=== PATIENT | female | born 1995 | race Caucasian/White ===

== ENCOUNTER 2021-02-08 18:47 | Observation (INO) | payer MEDICAID ==
[~2021-02-08] VITALS: Ht 154.9 cm; Wt 110.2 kg
[2021-02-08] MEDS ORDERED: PNV1TABL76 PO (19:43)
== END 2021-02-08 20:00 | disposition home or self-care (01) ==
LOC: 8 EST LDRP 18:47
PROVIDERS: ADMIT Obstetrics & Gynecology; ATTEND Obstetrics & Gynecology
DX: Z34.92 Encounter for supervision of normal pregnancy, unspecified, second trimester (principal); Z3A.23 23 weeks gestation of pregnancy
CPT/HCPCS: 59025; G0378

== ENCOUNTER 2021-04-23 06:04 | Inpatient (IN) | payer MEDICAID ==
[~2021-04-23] VITALS: Ht 1 cm; Wt 110.2 kg
[~2021-04-23 06:04] MED LIST: PNV1TABL76 PO
[2021-04-23] MEDS ORDERED: LACTATED RINGERS 1,000 ML IV SCH (07:30)
[2021-04-23] MEDS ORDERED: CARBOPROST TROMETHAMINE 250 MCG/ML AMPUL IM PRN (07:30)
[2021-04-23] MEDS ORDERED: METHYLERGONOVINE MALEATE 0.2 MG/ML IM PRN (07:30)
[2021-04-23 09:07] LABS: BASOPHILS % 0.2 % (0.0-2.0); EOSINOPHILS % 1.5 % (0.0-5.0); HEMATOCRIT. 39.6 % (36.0-48.0); HEMOGLOBIN. 13.5 g/dL (12.0-16.0); LYMPHOCYTES % 17.9 % (20.0-50.0); MEAN CORPUSCULAR HEMOGLOBIN 30.2 pg (28.0-32.0); MEAN PLATELET VOLUME 11.8 fl (7.4-10.4); MONOCYTES % 6.5 % (2.0-8.0); NEUTROPHILS % 73.9 % (40.0-76.0); PLATELET 142 x1000/uL (130-400); RED BLOOD CELL COUNT 4.45 mill/uL (4.2-5.4); RED CELL DISTRIBUTION WIDTH 14.1 % (11.6-14.6)
[2021-04-23 09:09] LABS: CLARITY URINE CLEAR (CLEAR); COLOR URINE ORANGE (YELLOW); KETONES URINE NEGATIVE (NEGATIVE); LEUKOCYTE ESTERASE URINE TRACE (NEGATIVE); NITRITE URINE NEGATIVE (NEGATIVE); OCCULT BLOOD URINE 3+ (NEGATIVE); PROTEIN URINE TRACE (NEGATIVE); SPECIFIC GRAVITY URINE 1.008 (1.005-1.030); UROBILINOGEN URINE 0.2 E.U./dL (0.2-1.0)
[2021-04-23 09:57] LABS: *AMPHETAMINES SCREEN URINE NEGATIVE (NEGATIVE); *BARBITURATES SCREEN URINE NEGATIVE (NEGATIVE)
[2021-04-23 09:58] LABS: *BENZODIAZEPINES SCREEN URINE NEGATIVE (NEGATIVE); *COCAINE SCREEN URINE NEGATIVE (NEGATIVE); CANNABINOID URINE SCREEN NEGATIVE (NEGATIVE); METHADONE URINE SCREEN NEGATIVE (NEGATIVE); OPIATES URINE SCREEN NEGATIVE (NEGATIVE); PHENCYCLIDINE URINE SCREEN NEGATIVE (NEGATIVE)
[2021-04-23 11:32] LABS: INR 0.9; PARTIAL THROMBOPLASTIN TIME 25.6 sec (23.4-31.0); PROTHROMBIN TIME 9.8 sec (9.6-11.0)
[2021-04-23] MEDS ORDERED: CEFAZOLIN SODIUM 1000MG/VIAL ONE (12:09)
[2021-04-23] MEDS ORDERED: MORPHINE SULFATE/PF 1MG/ML 10ML AMP ONE (12:09)
[2021-04-23] MEDS ORDERED: OXYTOCIN 10 UNITS/ML 1ML ONE (12:09)
[2021-04-23] MEDS ORDERED: ONDANSETRON HCL 4MG/2ML INJ ONE (12:10)
[2021-04-23] MEDS ORDERED: EPHEDRINE SULFATE 50MG/ML VIAL ONE (12:10)
[2021-04-23] MEDS ORDERED: SUCCINYLCHOLINE CHLORIDE 200MG/10ML IV ONE (12:10)
[2021-04-23] MEDS ORDERED: PHENYLEPHRINE HCL 10 MG/ML 1ML (IV VIAL) IV ONE (12:25)
[2021-04-23 12:41] LABS: HEPATITIS B SURFACE ANTIGEN NEGATIVE
[2021-04-23] MEDS ORDERED: MORPHINE SULFATE 2 MG/ML CPJ (NOT FOR IM USE) IV PRN (13:00)
[2021-04-23] MEDS ORDERED: DIPHENHYDRAMINE 50MG/ML VIAL IV PRN (13:00)
[2021-04-23] MEDS ORDERED: NALOXONE HCL 0.4 MG/ML 1ML VIAL IV PRN (13:00)
[2021-04-23] MEDS ORDERED: ONDANSETRON HCL 4MG/2ML INJ IV PRN ×3 (13:00→16:15)
[2021-04-23] MEDS ORDERED: METOCLOPRAMIDE HCL 10MG/2ML VIAL IV PRN (13:00)
[2021-04-23] MEDS ORDERED: LANOLIN OINT 7GM TUBE TOP PRN ×2 (15:00→16:15)
[2021-04-23] MEDS ORDERED: RHO(D) IMMUNE GLOBULIN 300 MCG/SYR IM PRN ×2 (15:00→16:15)
[2021-04-23] MEDS ORDERED: IBUPROFEN 400MG TABLET PO PRN ×2 (15:00→16:15)
[2021-04-23] MEDS ORDERED: DEXT 5%/LR + PITOCIN 20UNITS/L 1,000 ML IV SCH ×2 (15:00→16:15)
[2021-04-23 15:30] VITALS: BP 89/49
[2021-04-23] MEDS: KETOROLAC 30MG/ML VIAL IV SCH ×2 (15:30→20:08)
[2021-04-23 16:05] VITALS: BP 90/49
[2021-04-23] MEDS ORDERED: DIPHENHYDRAMINE 25MG CAPSULE PO PRN (16:15)
[2021-04-23] MEDS ORDERED: ACETAMINOPHEN WITH CODEINE 300/30MG TABLET PO PRN (16:15)
[2021-04-23] MEDS ORDERED: IBUPROFEN 800MG TABLET PO PRN (16:15)
[2021-04-23] MEDS ORDERED: BISACODYL 10MG SUPP PR PRN (16:15)
[2021-04-23] MEDS ORDERED: HEMORRHOIDAL SUPP PR PRN (16:15)
[2021-04-23] MEDS: MAGNESIUM/ALUMINUM HYDROXIDE/SIMETHICONE 30ML UDC PO SCH (17:00)
[2021-04-23] MEDS: SIMETHICONE 80MG TABLET CHEW PO SCH (17:00)
[2021-04-23 20:00] VITALS: BP 100/53
[2021-04-23] MEDS ORDERED: DOCUSATE SODIUM 100MG CAPSULE PO SCH ×2 (21:00)
[2021-04-23 23:57] VITALS: BP 96/58
[2021-04-24] MEDS: KETOROLAC 30MG/ML VIAL IV SCH (02:18)
[2021-04-24 03:00] VITALS: BP 94/50
[2021-04-24] MEDS ORDERED: KETOROLAC 30MG/ML VIAL IV SCH (03:00)
[2021-04-24] MEDS ORDERED: FERROUS SULFATE 325MG TABLET PO SCH ×2 (07:30→09:00)
[2021-04-24 08:05] LABS: BASOPHILS % 0.1 % (0.0-2.0); EOSINOPHILS % 0.3 % (0.0-5.0); HEMOGLOBIN. 9.4 g/dL (12.0-16.0); LYMPHOCYTES % 14.1 % (20.0-50.0); MEAN CORPUSCULAR HEMOGLOBIN 30.8 pg (28.0-32.0); MEAN CORPUSCULAR VOLUME 91.8 fL (81.0-99.0); MEAN PLATELET VOLUME 11.7 fl (7.4-10.4); MONOCYTES % 6.7 % (2.0-8.0); NEUTROPHILS % 78.8 % (40.0-76.0); PLATELET 137 x1000/uL (130-400); RED BLOOD CELL COUNT 3.05 mill/uL (4.2-5.4); RED CELL DISTRIBUTION WIDTH 14.7 % (11.6-14.6)
[2021-04-24] MEDS ORDERED: PRENATAL VIT/FE FUMARATE/FA TABLET PO SCH ×2 (09:00)
[2021-04-24] MEDS: IBUPROFEN 800MG TABLET PO PRN ×2 (09:08→21:14)
[2021-04-24] MEDS: SIMETHICONE 80MG TABLET CHEW PO SCH ×2 (09:08→21:13)
[2021-04-24 19:30] VITALS: BP 101/53
[2021-04-24] MEDS: MAGNESIUM/ALUMINUM HYDROXIDE/SIMETHICONE 30ML UDC PO SCH (21:13)
[2021-04-25 04:00] VITALS: BP 121/64
[2021-04-25 10:00] VITALS: BP 112/64
[2021-04-25] MEDS: MAGNESIUM/ALUMINUM HYDROXIDE/SIMETHICONE 30ML UDC PO SCH (13:46)
[2021-04-25] MEDS: SIMETHICONE 80MG TABLET CHEW PO SCH (13:46)
== END 2021-04-25 14:00 | disposition home or self-care (01) | DRG 540 ==
LOC: 8 EST LDRP 06:04 → OBSVTOIN 06:04 → 8EST 15:30
PROVIDERS: ADMIT Obstetrics & Gynecology; ATTEND Obstetrics & Gynecology
PROC: 10D00Z1 Extraction of Products of Conception, Low, Open Approach (ICD-10-PCS; principal; 2021-04-24)
DX: O34.211 Maternal care for low transverse scar from previous cesarean delivery (principal); Z20.822 Contact with and (suspected) exposure to COVID-19; Z37.0 Single live birth; Z3A.38 38 weeks gestation of pregnancy
CPT/HCPCS: 36415; 80305; 81003; 85025; 86592; 86703; 86762; 86850; 86900; 87340; 87426; 88307; 99281; G0378; J0330; J0690; J1885; J2274; J2370; J2405; J2590; J3490; J7120; A4315

== ENCOUNTER 2021-04-27 13:55 | Inpatient (IN) | payer MEDICAID ==
[~2021-04-27] VITALS: Ht 154.9 cm; Wt 111.1 kg
[2021-04-27] MEDS ORDERED: MORPHINE SULFATE 4 MG/ML CPJ (NOT FOR IM USE) IV STA (14:22)
[2021-04-27] MEDS ORDERED: SODIUM CHLORIDE 0.9% 1000ML BAG (SEPSIS BOLUS) IV ONE (14:30)
[2021-04-27 15:11] LABS: BASOPHILS % 0.2 % (0.0-2.0); EOSINOPHILS % 1.2 % (0.0-5.0); HEMATOCRIT. 23.2 % (36.0-48.0); HEMOGLOBIN. 7.8 g/dL (12.0-16.0); LYMPHOCYTES % 12.2 % (20.0-50.0); MEAN CORPUSCULAR HEMOGLOBIN 31.1 pg (28.0-32.0); MEAN CORPUSCULAR VOLUME 92.4 fL (81.0-99.0); MEAN PLATELET VOLUME 9.8 fl (7.4-10.4); MONOCYTES % 7.8 % (2.0-8.0); NEUTROPHILS % 78.6 % (40.0-76.0); PLATELET 223 x1000/uL (130-400); RED BLOOD CELL COUNT 2.51 mill/uL (4.2-5.4); RED CELL DISTRIBUTION WIDTH 14.7 % (11.6-14.6)
[2021-04-27 15:14] LABS: CHLORIDE 108 mEq/L (98-107)
[2021-04-27 15:17] LABS: INR 0.9; PROTHROMBIN TIME 10.2 sec (9.6-11.0)
[2021-04-27] MEDS ORDERED: PIPERACILLIN/TAZOBACTAM 3.375GM/50ML PREMIX IV NR (17:15)
[2021-04-27] MEDS ORDERED: MORPHINE SULFATE 4 MG/ML CPJ (NOT FOR IM USE) IV NR (17:15)
[2021-04-27] MEDS ORDERED: CLINDAMYCIN 600MG PREMIX 50 ML IV NR (17:30)
[2021-04-27] MEDS ORDERED: HYDROMORPHONE HCL/PF 2MG/ML CPJ IV ONE ×2 (18:00)
[2021-04-28] MEDS ORDERED: MORPHINE SULFATE 2 MG/ML CPJ (NOT FOR IM USE) IV PRN (02:15)
[2021-04-28 02:41] VITALS: BP 135/76
[2021-04-28] MEDS ORDERED: NALOXONE HCL 0.4MG/ML VIAL IV PRN (03:45)
[2021-04-28] MEDS: HYDROCODONE/ACETAMINOPHEN 5/325MG TABLET PO PRN ×2 (03:57→10:11)
[2021-04-28 04:00] VITALS: BP 117/64
[2021-04-28] MEDS ORDERED: PNEUMOCOCCAL 23-VAL P-SAC VAC 0.5 ML IM ONE (05:45)
[2021-04-28 08:00] VITALS: BP 114/70
[2021-04-28] MEDS ORDERED: IBUP-2029 MT (08:01)
[2021-04-28] MEDS ORDERED: GENTAMICIN 80MG PREMIX 100 ML IV SCH (11:30)
[2021-04-28 12:00] VITALS: BP 123/76
[2021-04-28] MEDS ORDERED: GENTAMICIN SULFATE 150 MG in SODIUM CHLORIDE 0.9% 100 ML IV NR (13:00)
[2021-04-28] MEDS: LACTATED RINGERS 1,000 ML IV SCH ×2 (13:36→17:40)
[2021-04-28] MEDS: GENTAMICIN 80MG PREMIX 100 ML IV SCH ×2 (14:03→21:22)
[2021-04-28] MEDS: CLINDAMYCIN 900 MG in DEXTROSE 5% WATER 50 ML IV SCH ×2 (15:32→20:28)
[2021-04-28 16:00] VITALS: BP 117/74
[2021-04-28 20:00] VITALS: BP 106/64
[2021-04-28] MEDS: ACETAMINOPHEN 325MG TABLET PO PRN (20:27)
[2021-04-29] VITALS: BP 115/62
[2021-04-29 04:00] VITALS: BP 124/76
[2021-04-29] MEDS: CLINDAMYCIN 900 MG in DEXTROSE 5% WATER 50 ML IV SCH ×3 (04:28→21:32)
[2021-04-29] MEDS: LACTATED RINGERS 1,000 ML IV SCH ×4 (04:40→20:50)
[2021-04-29] MEDS: ACETAMINOPHEN 325MG TABLET PO PRN (05:26)
[2021-04-29] MEDS: GENTAMICIN 80MG PREMIX 100 ML IV SCH ×2 (05:26→12:08)
[2021-04-29 05:57] LABS: BASOPHILS % 0.2 % (0.0-2.0); EOSINOPHILS % 0.7 % (0.0-5.0); HEMATOCRIT. 26.9 % (36.0-48.0); HEMOGLOBIN. 8.9 g/dL (12.0-16.0); LYMPHOCYTES % 13.7 % (20.0-50.0); MEAN CORPUSCULAR HEMOGLOBIN 30.2 pg (28.0-32.0); MEAN CORPUSCULAR VOLUME 91.2 fL (81.0-99.0); MEAN PLATELET VOLUME 9.1 fl (7.4-10.4); MONOCYTES % 8.7 % (2.0-8.0); NEUTROPHILS % 76.7 % (40.0-76.0); PLATELET 289 x1000/uL (130-400); RED BLOOD CELL COUNT 2.95 mill/uL (4.2-5.4); RED CELL DISTRIBUTION WIDTH 14.7 % (11.6-14.6)
[2021-04-29 06:14] LABS: CHLORIDE 109 mEq/L (98-107)
[2021-04-29 08:00] VITALS: BP 130/82
[2021-04-29 12:00] VITALS: BP 129/78
[2021-04-29 16:00] VITALS: BP 117/66
[2021-04-29] MEDS ORDERED: MEPERIDINE HCL/PF 25MG/ML CPJ IV PRN ×2 (17:30)
[2021-04-29] MEDS ORDERED: ONDANSETRON HCL 4MG/2ML INJ IV PRN (17:30)
[2021-04-29] MEDS ORDERED: MORPHINE SULFATE 2 MG/ML CPJ (NOT FOR IM USE) IV PRN (17:30)
[2021-04-29] MEDS ORDERED: SODIUM CHLORIDE 0.9% 1,000 ML IV ONE (17:30)
[2021-04-29] MEDS ORDERED: HYDROMORPHONE HCL/PF 2MG/ML CPJ IV PRN (17:30)
[2021-04-29] MEDS ORDERED: ALBUMIN HUMAN 12.5G/250ML (5%) IV ONE (17:31)
[2021-04-29] MEDS ORDERED: PROPOFOL 200MG/20ML VIAL IV ONE ×2 (17:33→18:46)
[2021-04-29] MEDS ORDERED: NEOSTIGMINE METHYLSULFATE 1MG/ML 10 ML VIAL ONE (17:33)
[2021-04-29] MEDS ORDERED: FENTANYL CITRATE/PF 50MCG/ML 2ML VIAL ONE ×3 (17:33→18:30)
[2021-04-29] MEDS ORDERED: ROCURONIUM BROMIDE 10MG/ML VIAL 5ML IV ONE (17:33)
[2021-04-29] MEDS ORDERED: PHENYLEPHRINE HCL 10 MG/ML 1ML (IV VIAL) IV ONE (17:34)
[2021-04-29] MEDS ORDERED: SUCCINYLCHOLINE CHLORIDE 200MG/10ML IV ONE (17:34)
[2021-04-29] MEDS ORDERED: SODIUM CHLORIDE 0.9% 10ML VIAL ONE (17:34)
[2021-04-29] MEDS ORDERED: ONDANSETRON HCL 4MG/2ML INJ ONE (17:34)
[2021-04-29] MEDS ORDERED: MIDAZOLAM HCL 2 MG/2 ML VIAL ONE (17:34)
[2021-04-29] MEDS ORDERED: METOCLOPRAMIDE HCL 10MG/2ML VIAL ONE (17:34)
[2021-04-29] MEDS ORDERED: CEFAZOLIN SODIUM 1000MG/VIAL ONE (17:34)
[2021-04-29] MEDS ORDERED: GLYCOPYRROLATE 0.2 MG/ML 2ML VIAL ONE (17:34)
[2021-04-29] MEDS: GENTAMICIN 100MG PREMIX 50 ML IV SCH (18:00)
[2021-04-29 18:44] LABS: MEAN CORPUSCULAR HEMOGLOBIN 32.1 pg (28.0-32.0); PLATELET 292 x1000/uL (130-400); RED CELL DISTRIBUTION WIDTH 14.8 % (11.6-14.6)
[2021-04-29] MEDS ORDERED: HYDROMORPHONE HCL/PF 2MG/ML (OR) ONE (18:48)
[2021-04-29 18:53] LABS: HEMATOCRIT 20.9 % (36.0-48.0)
[2021-04-29 18:54] LABS: HEMOGLOBIN 7.4 g/dL (12.0-16.0)
[2021-04-29 20:00] VITALS: BP 135/78
[2021-04-29 22:23] LABS: CLARITY URINE CLEAR (CLEAR); COLOR URINE DARK YELLOW (YELLOW); KETONES URINE 2+ (NEGATIVE); LEUKOCYTE ESTERASE URINE TRACE (NEGATIVE); NITRITE URINE NEGATIVE (NEGATIVE); OCCULT BLOOD URINE 2+ (NEGATIVE); PH URINE 7.5 (4.5-8.0); PROTEIN URINE 1+ (NEGATIVE); SPECIFIC GRAVITY URINE 1.017 (1.005-1.030)
[2021-04-30] VITALS: BP 132/83
[2021-04-30] MEDS: ACETAMINOPHEN 325MG TABLET PO PRN ×3 (00:55→23:38)
[2021-04-30] MEDS: GENTAMICIN 100MG PREMIX 50 ML IV SCH ×3 (00:55→17:38)
[2021-04-30] MEDS: HYDROCODONE/ACETAMINOPHEN 5/325MG TABLET PO PRN ×3 (02:48→20:18)
[2021-04-30] MEDS: LACTATED RINGERS 1,000 ML IV SCH ×3 (02:49→06:10)
[2021-04-30 04:00] VITALS: BP 119/72
[2021-04-30] MEDS: CLINDAMYCIN 900 MG in DEXTROSE 5% WATER 50 ML IV SCH ×3 (04:31→20:18)
[2021-04-30 06:33] LABS: CHLORIDE 111 mEq/L (98-107)
[2021-04-30 07:17] LABS: BASOPHILS % 0.2 % (0.0-2.0); EOSINOPHILS % 0.3 % (0.0-5.0); HEMATOCRIT. 24.6 % (36.0-48.0); HEMOGLOBIN. 8.2 g/dL (12.0-16.0); LYMPHOCYTES % 17.7 % (20.0-50.0); MEAN CORPUSCULAR HEMOGLOBIN 30.8 pg (28.0-32.0); MEAN CORPUSCULAR VOLUME 92.4 fL (81.0-99.0); MEAN PLATELET VOLUME 9.2 fl (7.4-10.4); MONOCYTES % 6.3 % (2.0-8.0); NEUTROPHILS % 75.5 % (40.0-76.0); PLATELET 323 x1000/uL (130-400); RED BLOOD CELL COUNT 2.67 mill/uL (4.2-5.4); RED CELL DISTRIBUTION WIDTH 15.1 % (11.6-14.6)
[2021-04-30] MEDS ORDERED: LACTATED RINGERS 1,000 ML IV SCH (07:45)
[2021-04-30] MEDS ORDERED: GENTAMICIN 100MG PREMIX 100 ML IV SCH (07:45)
[2021-04-30] MEDS ORDERED: CLINDAMYCIN 900 MG in DEXTROSE 5% WATER 50 ML IV SCH (07:45)
[2021-04-30 08:00] VITALS: BP 120/80
[2021-04-30] MEDS ORDERED: POTASSIUM CHLORIDE INJ 40 MEQ in DEXT 5% WATER 500 ML IV ONE (08:30)
[2021-04-30] MEDS ORDERED: CALCIUM GLUCONATE 1GM PREMIX 50 ML IV NR (09:00)
[2021-04-30 12:00] VITALS: BP 118/64
[2021-04-30 16:00] VITALS: BP 118/64
[2021-04-30 16:25] LABS: HEMATOCRIT 26.2 % (36.0-48.0); HEMOGLOBIN 8.9 g/dL (12.0-16.0); PLATELET 362 x1000/uL (130-400); RED BLOOD CELL COUNT 2.78 mill/uL (4.2-5.4); RED CELL DISTRIBUTION WIDTH 15.4 % (11.6-14.6)
[2021-04-30 20:00] VITALS: BP 117/64
[2021-04-30] MEDS ORDERED: IBUPROFEN 800MG TABLET PO PRN (23:30)
[2021-04-30] MEDS: DOCUSATE SODIUM 100MG CAPSULE PO SCH (23:35)
[2021-05-01] VITALS: BP 132/67
[2021-05-01] MEDS ORDERED: LACTATED RINGERS 1,000 ML IV SCH ×2 (00:30)
[2021-05-01] MEDS: GENTAMICIN 100MG PREMIX 50 ML IV SCH ×3 (00:50→22:03)
[2021-05-01] MEDS: LACTATED RINGERS 1,000 ML IV SCH ×4 (00:50→19:30)
[2021-05-01] MEDS: HYDROCODONE/ACETAMINOPHEN 5/325MG TABLET PO PRN (02:56)
[2021-05-01 04:00] VITALS: BP 113/64
[2021-05-01] MEDS: CLINDAMYCIN IN 0.9 % SOD CHLOR 50 ML IV SCH ×3 (05:50→21:55)
[2021-05-01 07:32] LABS: CHLORIDE 111 mEq/L (98-107)
[2021-05-01 07:37] LABS: GENTAMICIN RANDOM 2.6 ug/mL
[2021-05-01 07:42] LABS: HEMATOCRIT 26.7 % (36.0-48.0); HEMOGLOBIN 8.8 g/dL (12.0-16.0); MEAN CORPUSCULAR HEMOGLOBIN 30.4 pg (28.0-32.0); MEAN CORPUSCULAR VOLUME 91.9 fL (81.0-99.0); PLATELET 421 x1000/uL (130-400); RED BLOOD CELL COUNT 2.91 mill/uL (4.2-5.4); RED CELL DISTRIBUTION WIDTH 15.1 % (11.6-14.6)
[2021-05-01] MEDS: DOCUSATE SODIUM 100MG CAPSULE PO SCH (10:45)
[2021-05-01 16:00] VITALS: BP 114/76
[2021-05-01 20:00] VITALS: BP 106/55
[2021-05-01] MEDS: ACETAMINOPHEN 325MG TABLET PO PRN (21:56)
[2021-05-01] MEDS ORDERED: GENTAMICIN 100MG PREMIX 50 ML IV SCH (23:00)
[2021-05-01 23:45] VITALS: BP 117/52
[2021-05-02 04:00] VITALS: BP 125/73
[2021-05-02] MEDS: LACTATED RINGERS 1,000 ML IV SCH ×4 (05:14→23:30)
[2021-05-02] MEDS: CLINDAMYCIN IN 0.9 % SOD CHLOR 50 ML IV SCH ×3 (05:17→22:13)
[2021-05-02] MEDS: ACETAMINOPHEN 325MG TABLET PO PRN ×2 (05:37→22:09)
[2021-05-02 08:00] VITALS: BP 131/69
[2021-05-02] MEDS: DOCUSATE SODIUM 100MG CAPSULE PO SCH (09:44)
[2021-05-02 12:00] VITALS: BP 126/77
[2021-05-02 12:21] LABS: HEMATOCRIT 24.6 % (36.0-48.0); HEMOGLOBIN 8.3 g/dL (12.0-16.0); MEAN CORPUSCULAR HEMOGLOBIN 30.8 pg (28.0-32.0); MEAN CORPUSCULAR VOLUME 90.8 fL (81.0-99.0); PLATELET 447 x1000/uL (130-400); RED BLOOD CELL COUNT 2.71 mill/uL (4.2-5.4); RED CELL DISTRIBUTION WIDTH 14.9 % (11.6-14.6)
[2021-05-02 12:24] LABS: CHLORIDE 109 mEq/L (98-107)
[2021-05-02] MEDS: AMPICILLIN 2,000 MG in SODIUM CHLORIDE 0.9% 100 ML IV SCH ×3 (13:06→23:43)
[2021-05-02] MEDS: GENTAMICIN 100MG PREMIX 50 ML IV SCH ×2 (13:13→22:49)
[2021-05-02 16:00] VITALS: BP 106/64
[2021-05-02 20:00] VITALS: BP 122/70
[2021-05-02] MEDS ORDERED: LACTATED RINGERS 1,000 ML IV ONE (23:00)
[2021-05-03] VITALS: BP 108/54
[2021-05-03 04:00] VITALS: BP 138/88
[2021-05-03] MEDS: CLINDAMYCIN IN 0.9 % SOD CHLOR 50 ML IV SCH ×3 (05:05→21:25)
[2021-05-03] MEDS: AMPICILLIN 2,000 MG in SODIUM CHLORIDE 0.9% 100 ML IV SCH ×4 (05:43→23:07)
[2021-05-03] MEDS: LACTATED RINGERS 1,000 ML IV SCH ×3 (06:39→21:04)
[2021-05-03 07:26] LABS: HEMOGLOBIN 7.7 g/dL (12.0-16.0); MEAN CORPUSCULAR HEMOGLOBIN 30.5 pg (28.0-32.0); MEAN CORPUSCULAR VOLUME 91.1 fL (81.0-99.0); PLATELET 379 x1000/uL (130-400); RED BLOOD CELL COUNT 2.53 mill/uL (4.2-5.4); RED CELL DISTRIBUTION WIDTH 15.3 % (11.6-14.6)
[2021-05-03 07:53] LABS: CHLORIDE 113 mEq/L (98-107)
[2021-05-03 08:00] VITALS: BP 121/54
[2021-05-03 08:04] LABS: GENTAMICIN RANDOM 0.5 ug/mL
[2021-05-03] MEDS: DOCUSATE SODIUM 100MG CAPSULE PO SCH (09:22)
[2021-05-03] MEDS: GENTAMICIN 100MG PREMIX 50 ML IV SCH ×2 (10:29→22:12)
[2021-05-03 12:00] VITALS: BP 117/66
[2021-05-03 16:00] VITALS: BP 105/54
[2021-05-03 20:00] VITALS: BP 112/65
[2021-05-04] VITALS: BP 116/53
[2021-05-04 04:00] VITALS: BP 125/70
[2021-05-04] MEDS: CLINDAMYCIN IN 0.9 % SOD CHLOR 50 ML IV SCH ×2 (06:10→13:15)
[2021-05-04] MEDS: AMPICILLIN 2,000 MG in SODIUM CHLORIDE 0.9% 100 ML IV SCH ×2 (06:10→11:28)
[2021-05-04] MEDS: LACTATED RINGERS 1,000 ML IV SCH ×2 (06:11→08:59)
[2021-05-04 08:00] VITALS: BP 123/73
[2021-05-04] MEDS: DOCUSATE SODIUM 100MG CAPSULE PO SCH (08:59)
[2021-05-04] MEDS ORDERED: POTASSIUM CHLORIDE 20MEQ TABLET SR PO SCH (10:30)
[2021-05-04] MEDS: GENTAMICIN 100MG PREMIX 50 ML IV SCH (10:48)
[2021-05-04 12:00] VITALS: BP 132/73
[2021-05-04 13:04] VITALS: BP 132/73
== END 2021-05-04 14:48 | disposition home or self-care (01) | DRG 548 ==
LOC: ER 13:55 → MICUSO 17:04 → EDBEDREQSVC 17:51 → EDBEDREQ 17:51 → 8WST 23:40
PROVIDERS: ADMIT Obstetrics & Gynecology; ATTEND Obstetrics & Gynecology
PROC: 0UC90ZZ Extirpation of Matter from Uterus, Open Approach (ICD-10-PCS; principal; 2021-04-29)
DX: O90.2 Hematoma of obstetric wound (principal); D62 Acute posthemorrhagic anemia; E83.51 Hypocalcemia; O86.4 Pyrexia of unknown origin following delivery; O86.20 Urinary tract infection following delivery, unspecified; S30.1XXA Contusion of abdominal wall, initial encounter; Z20.822 Contact with and (suspected) exposure to COVID-19; O90.81 Anemia of the puerperium; O90.89 Other complications of the puerperium, not elsewhere classified; E87.6 Hypokalemia; Z98.891 History of uterine scar from previous surgery
CPT/HCPCS: 36415; 74176; 80048; 80053; 80170; 81003; 83605; 84145; 85025; 85027; 86850; 86900; 86920; 87426; 90732; 93005; 99285; J0290; J0330; J0610; J0690; J1170; J1580; J2175; J2250; J2270; J2370; J2405; J2543; J2704; J2710; J2765; J3010; J3480; J3490; J7030; J7040; J7042; J7050; J7060; J7070; J7120; P9041; A4315

== ENCOUNTER 2021-05-19 15:59 | Emergency (ER) | payer MEDICAID ==
[~2021-05-19] VITALS: Ht 154.9 cm; Wt 102.0 kg
[~2021-05-19 15:59] MED LIST changes: +IBUP-2029 MT; -PNV1TABL76 PO
[2021-05-19] MEDS ORDERED: KETOROLAC 30MG/ML VIAL IM ONE (16:30)
[2021-05-19] MEDS ORDERED: OFLO5DRO4 LEFT EAR (16:38)
[2021-05-19] MEDS ORDERED: IBUP-2029 MT (16:38)
[2021-05-19 16:42] VITALS: BP 137/66
== END 2021-05-19 16:53 | disposition home or self-care (01) ==
LOC: ER 15:59
DX: H92.02 Otalgia, left ear (principal); Z79.899 Other long term (current) drug therapy
CPT/HCPCS: 96372; 99283; J1885

== ENCOUNTER 2021-05-21 05:17 | Emergency (ER) | payer MEDICAID ==
[~2021-05-21] VITALS: Ht 154.9 cm; Wt 103.0 kg
[~2021-05-21 05:17] MED LIST changes: +OFLO5DRO4 LEFT EAR
[2021-05-21 05:34] VITALS: BP 153/90
[2021-05-21] MEDS ORDERED: IBUPROFEN 600MG TABLET PO ONE (05:45)
[2021-05-21] MEDS ORDERED: ACETAMINOPHEN 325MG TABLET PO ONE (05:45)
[2021-05-21] MEDS ORDERED: ACET-2708 MT (05:47)
== END 2021-05-21 06:24 | disposition home or self-care (01) ==
LOC: ER 05:17
DX: H60.92 Unspecified otitis externa, left ear (principal); Z98.890 Other specified postprocedural states
CPT/HCPCS: 99282

== ENCOUNTER 2023-09-20 13:28 | Emergency (ER) | payer MEDICAID ==
[~2023-09-20] VITALS: Ht 157.5 cm; Wt 106.0 kg
[~2023-09-20 13:28] MED LIST changes: +ACET-2708 MT
[2023-09-20 13:42] VITALS: BP 149/95; PULSE 102; RESP 18; TEMP 97.5; O2SAT 98
[2023-09-20 14:56] LABS: BASOPHILS % 0.2 % (0.0-2.0); EOSINOPHILS % 2.5 % (0.0-5.0); HEMATOCRIT. 42.7 % (36.0-48.0); LYMPHOCYTES % 26.3 % (20.0-50.0); MEAN CORPUSCULAR HGB CONC 32.7 g/dL (31.0-37.0); MEAN CORPUSCULAR VOLUME 91.6 fL (81.0-99.0); MEAN PLATELET VOLUME 11.4 fl (7.4-10.4); MONOCYTES % 5.6 % (2.0-8.0); NEUTROPHILS % 65.4 % (40.0-76.0); PLATELET 203 x1000/uL (130-400); RED BLOOD CELL COUNT 4.66 mill/uL (4.2-5.4); RED CELL DISTRIBUTION WIDTH 13.3 % (11.6-14.6); WHITE BLOOD COUNT 9.9 x1000/uL (4.5-11.0)
[2023-09-20 15:02] LABS: ALANINE AMINOTRANSFERASE 80 IU/L (10-49); ALBUMIN 4.3 g/dL (3.2-4.8); ASPARTATE AMINOTRANSFERASE 42 IU/L (<34); BILIRUBIN TOTAL 0.5 mg/dL (0.1-1.0); CALCIUM 9.4 mg/dL (8.7-10.4); CARBON DIOXIDE 25 mEq/L (21-32); CHLORIDE 105 mEq/L (98-107); CREATININE 0.6 mg/dL (0.6-1.0); GLUCOSE 96 mg/dL (70-105); POTASSIUM 4.6 mEq/L (3.5-5.1); PROTEIN TOTAL 7.6 g/dL (6.0-8.3); SODIUM 137 mEq/L (136-145); UREA NITROGEN BLOOD 8 mg/dL (9-23)
[2023-09-20 15:27] LABS: CLARITY URINE CLEAR (CLEAR); COLOR URINE YELLOW (YELLOW); GLUCOSE URINE NEGATIVE (NEGATIVE); KETONES URINE NEGATIVE (NEGATIVE); LEUKOCYTE ESTERASE URINE NEGATIVE (NEGATIVE); NITRITE URINE NEGATIVE (NEGATIVE); OCCULT BLOOD URINE NEGATIVE (NEGATIVE); PH URINE 6.5 (4.5-8.0); PROTEIN URINE NEGATIVE (NEGATIVE); SPECIFIC GRAVITY URINE 1.021 (1.005-1.030); UROBILINOGEN URINE 0.2 E.U./dL (0.2-1.0)
[2023-09-20] MEDS ORDERED: ONDANSETRON HCL 4MG/2ML INJ IV STA (17:06)
[2023-09-20] MEDS ORDERED: MORPHINE SULFATE 4 MG/ML CPJ (NOT FOR IM USE) IV STA (17:06)
[2023-09-20] MEDS ORDERED: SODIUM CHLORIDE 0.9% 1,000 ML IV ONE (17:15)
[2023-09-20] MEDS ORDERED: IBUP-2028 MT (19:55)
== END 2023-09-20 20:26 | disposition home or self-care (01) ==
LOC: ER 13:28
DX: R10.31 Right lower quadrant pain (principal); R11.0 Nausea; Z98.890 Other specified postprocedural states; Z79.899 Other long term (current) drug therapy
CPT/HCPCS: 80053; 81003; 81025; 83690; 85025; 36415; 74176; 96361; 96374; 96375; 99285; J2405; J2270; J7030; Z7610